=== PATIENT | male | born 1975 | race Caucasian/White ===

== ENCOUNTER → 2017-02-22 | Outpatient (CLI) | payer OTHER ==
[2016-05-07 13:45] VITALS: BP 95/56
[~2017-02-22] MED LIST: BACL20TA PO; CEFA2SYR IV; CEPH500T PO; CLIN300C8 PO; FENT1PAT21 TP; FENT1PAT91 TD; GABA-586 PO; GABA800T2 PO; NITR100C62 PO; OXYC20TA34 PO
--- NOTE | 2017-02-22 09:21 | RAD ---
COMPLETE ABDOMINAL ULTRASOUND Clinical History: Abdominal pain Comparison: None. Technique: Sonographic examination of the abdomen was performed and multiple grayscale and duplex Doppler static images were obtained. Findings: The majority of the liver is visualized and appears homogeneous. The liver measures 15.7 cm. Portal flow is hepatopetal. The common bile duct is normal in caliber, measuring 5 mm in diameter. Wall echo shadow sign consistent with multiple stones within the gallbladder. Mild gallbladder wall thickening measuring 0.4 cm. The pancreas is not well visualized due to overlying bowel gas but appears within normal limits. The right kidney is normal in morphology and echotexture and measures 11.7 x 5.4 x 4.9 cm. The left kidney is normal in morphology and echotexture and measures 12.5 x 6.5 x 5.6 cm. There is no hydronephrosis. The spleen is borderline enlarged, measuring 12.3 cm. Visualized portions of the abdominal aorta and IVC appear normal. IMPRESSION: 1. Wall echo shadow sign consistent with multiple stones in the gallbladder. Mild gallbladder wall thickening measuring 0.4 cm. No pericholecystic fluid. Findings can be seen with acute cholecystitis. HIDA scan could be obtained for confirmation. 2. Borderline splenomegaly.
== END | disposition home or self-care (01) ==
LOC: US 07:05
PROVIDERS: ATTEND Family Medicine
DX: R10.9 Unspecified abdominal pain (principal)
CPT/HCPCS: 76700

== ENCOUNTER → 2017-04-18 | Outpatient (CLI) | payer OTHER ==
[2016-05-07 13:45] VITALS: BP 95/56
[~2017-04-18] MED LIST changes: -CEFA2SYR IV; +CEFA2SYR4 IV; +CONTRAST GIVEN MC PRN; +IOHEXOL 240 MG/ML 50ML VIAL. PO ONE; +IOHEXOL 300 MG/ML 75 ML VIAL IV ONE
--- NOTE | 2017-04-18 13:17 | RAD ---
Indication weight loss. Diarrhea. Loss of appetite. Axial images through the abdomen and pelvis were obtained. Both IV and oral contrast were administered. Approximately 75 cc of Omnipaque 300 was administered intravenously. No prior CT imaging of the abdomen or pelvis is available. The lung bases appear clear. The liver and spleen appear unremarkable. Stones demonstrated in the gallbladder on an examination 02/22/2017 are not well represented on CT. The adrenal glands and kidneys appear unremarkable. The pancreas appears normal. An acute finding in the abdomen is not seen. In the pelvis a suprapubic catheter is noted in the bladder. A mass inflammatory process or acute finding is not seen. A moderate amount of stool is noted in the large bowel. IVC filter is noted. There are some venous collaterals noted in the pelvis. IMPRESSION: No acute finding seen in the abdomen or pelvis PQRS Compliance Statement: One or more of the following individualized dose reduction techniques were utilized for this examination: 1. Automated exposure control 2. Adjustment of the mA and/or kV according to patient size 3. Use of iterative reconstruction technique
== END | disposition home or self-care (01) ==
LOC: CT 11:02
PROVIDERS: ATTEND Surgery
DX: R19.00 Intra-abdominal and pelvic swelling, mass and lump, unspecified site (principal); R19.7 Diarrhea, unspecified; R63.0 Anorexia; R63.4 Abnormal weight loss
CPT/HCPCS: 74177

== ENCOUNTER → 2017-04-27 | Day surgery (SDC) | payer OTHER ==
[~2017-04-27] VITALS: Ht 177.8 cm; Wt 72.6 kg
[~2017-04-27] MED LIST changes: +ASCO100T4 PO; +BENZOCAINE/MENTHOL LOZENGE. PO PRN; +BUPIVACAINE-EPI 0.5%-1:200000 50 ML VIAL. ONE; -CONTRAST GIVEN MC PRN; +DEXAMETHASONE SOD PHOS 20 MG/5 ML VIAL. ONE; +ESMOLOL 100 MG/10 ML VIAL. IV ONE; +FURO20TA3 PO; +GLUCAGON,HUMAN RECOMBINANT 1 MG/ML VIAL. ONE; +GLYCOPYRROLATE 1 MG/5 ML VIAL. ONE; +HYDROmorphone 2 MG/ML VIAL IV PRN; -IOHEXOL 240 MG/ML 50ML VIAL. PO ONE; +IOHEXOL 300 MG/ML 50 ML VIAL. ONE; -IOHEXOL 300 MG/ML 75 ML VIAL IV ONE; +IV RINGERS,LACTATED 1000ML 1,000 ML IV SCH; +LIDOCAINE 1% PF 2 ML VIAL. ID PRN; +LIDOCAINE 2% PF Vial for OR 5 ML VIAL. ONE; +MIDAZOLAM HCL/PF 2 MG/2 ML VIAL. ONE; +MORPHINE SULFATE 2 MG/ML DISP.SYRIN. IV PRN; +MORPHINE SULFATE 4 MG/ML DISP.SYRIN. IV PRN; +MULT1TAB52 PO; +NEOSTIGMINE METHYLSULFATE 5 MG/5 ML SYRINGE. ONE; +ONDANSETRON PF 4 MG/2 ML VIAL. IV PRN; +ONDANSETRON PF 4 MG/2 ML VIAL. ONE; +PROCHLORPERAZINE 10 MG/2 ML VIAL. IV PRN; +PROPOFOL 20 ML IV ONE; +ROCURONIUM 100 MG/10 ML VIAL. ONE; +SEVOFLURANE 61 TO 120 MINUTES. IH ONE; +SURGICEL HEMOSTAT 4X8 EACH. ONE; +fentaNYL PF VIAL 100 MCG/2 ML VIAL IV PRN; +fentaNYL PF VIAL 100 MCG/2 ML VIAL ONE; +oxyCODONE IR 5 MG TABLET PO ONE
[2017-04-27 07:18] LABS: BASO % 1 % (0-3); EOS % 2 % (0-3); HEMATOCRIT 39.8 % (39.0-53.0); LYMPH # 2.5 x10^3/uL (1.0-4.8); LYMPH % 45 % (24-48); MEAN CORPUSCULAR HEMOGLOBIN 29 pg (25-35); MEAN CORPUSCULAR HGB CONC 33 g/dL (31-37); MEAN CORPUSCULAR VOLUME 88 fL (79-100); MONO % 9 % (0-9); NEUT % 43 % (31-73); PLATELET COUNT 186 x10^3/uL (140-400); RED BLOOD COUNT 4.51 x10^6/uL (4.30-5.70); WHITE BLOOD COUNT 5.5 x10^3/uL (4.0-11.0)
[2017-04-27 07:34] LABS: CALCIUM 9.1 mg/dL (8.5-10.1); CREATININE 0.8 mg/dL (0.7-1.3); GFR 107.1; POTASSIUM 3.9 mmol/L (3.5-5.1)
[2017-04-27 07:39] LABS: ALBUMIN 3.6 g/dL (3.4-5.0); TOTAL BILIRUBIN 0.3 mg/dL (0.2-1.0)
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
--- NOTE | 2017-04-27 09:51 | RAD ---
Operative cholangiogram History: Intraoperative cholangiogram Procedure: Fluoroscopic images were provided during the procedure. The cystic duct has been catheterized and contrast has been injected. Findings: There is mild dilated appearing common bile duct and prominent appearing intrahepatic bile ducts. Few small lucencies project in the distal aspect of the common bile duct could be air bubbles or choledocholithiasis. Contrast is identified in the duodenum. Impression: Few small lucencies project in the distal aspect of the common bile duct could be air bubbles or choledocholithiasis. Total fluoroscopic images 5. Total fluoroscopy time 0.29 minutes.
--- NOTE | 2017-04-27 10:06 | DISCH ---
DISCHARGE INSTRUCTIONS Condition on Discharge Condition on Discharge: Stable Activity After Discharge Activity Instructions for Disc: Activity as tolerated Diet after Discharge Diet after Discharge: Regular Follow-Up Follow up with: Gabriel next week DAGOBERTO MACDONALD MD Apr 27, 2017 10:06
--- NOTE | 2017-04-27 10:09 | PDOC ---
BRIEF OPERATIVE NOTE Date: Apr 27, 2017 Pre-Op Diagnosis symptomatic cholelithiasis Post-Op Diagnosis same, possible choledocholithiasis Procedure Performed l/s cholecystectomy with cholangiograms Surgeon Gabriel Patient Support Partner Mounika FLORES Anesthesia Type: General Blood Loss 25cc IV Fluid 700cc Specimens Obtained GB Findings supple GB, grams suggest air bubbles vs non obstructing stones Complications none OPerative Note Wk #[id number] DAGOBERTO MACDONALD MD Apr 27, 2017 10:09
[2017-04-27] MEDS: fentaNYL PF VIAL 100 MCG/2 ML VIAL IV PRN ×2 (10:19→10:40)
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
[2017-04-27 12:25] VITALS: BP 116/76
--- NOTE | 2017-04-28 13:36 | PATHOLOGY ---
PATHOLOGY REPORT * * * * * * * * FINAL DIAGNOSIS: Gallbladder, cholecystectomy: - Chronic cholecystitis. - Cholelithiasis. (SKM:levi; 04/28/2017) REPORT ELECTRONICALLY SIGNED BY: Cass Ahumada M.D. DATE/TIME: 04/28/2017 13:35 * * * * * * * * GROSS PATHOLOGY: Received in formalin labeled "Sondra Hair, gallbladder + its contents," is a 8.4 x 2.4 x 1.9 cm, intact gallbladder with bluepinkish, slightly wrinkled, and vascular serosal surfaces. Opening the gallbladder reveals dark chavez, velvety mucosa and an average wall thickness of 0.1 cm. Calculi are present, measuring 0.1-0.8 cm in maximum dimension, possessing a dark chavez color, and feeling friable to the touch. No masses are noted grossly. Hvac Sales Representative sections from the body and fundus are submitted along with the proximal margin in cassette A1. (TSD; 04/27/2017) INITIAL CPT CODE(S): A; 72808 Professional services performed by [facility] [place] [address] Technical services performed by [employer] at [address] [place] [address], [facility] [address], [place] [address]. SPECIMEN(S) RECEIVED: A.Gallbladder and its contents CLINICAL HISTORY: Gallstones PATIENT: SONDRA HAIR /AGE: 4 1975 (Age: 41) PATIENT #: [id number] ALT CASE #: SPECIMEN COLLECTION DATE: 04/27/2017 SPECIMEN RECEIVED DATE: 04/27/2017 [facility] - [address] [place] [address] - PHONE: [phone] * * * END OF REPORT * * *
== END | disposition home or self-care (01) ==
LOC: SURG 06:38
PROVIDERS: ATTEND Surgery
DX: K80.10 Calculus of gallbladder with chronic cholecystitis without obstruction (principal); F32.9 Major depressive disorder, single episode, unspecified; F17.200 Nicotine dependence, unspecified, uncomplicated; Z86.718 Personal history of other venous thrombosis and embolism; Z86.69 Personal history of other diseases of the nervous system and sense organs; Z98.890 Other specified postprocedural states; Z87.440 Personal history of urinary (tract) infections; Z87.39 Personal history of other diseases of the musculoskeletal system and connective tissue; Z72.89 Other problems related to lifestyle; Z72.0 Tobacco use
CPT/HCPCS: 36415; 47563; 74300; 80048; 82040; 82247; 85025; C1769; J0690; J1100; J2405; J2704; J2710; J3010; J3490; J7030; J7120; Q9967; 88304; J1610; J2250; J2001

== ENCOUNTER → 2018-07-20 | Outpatient (CLI) | payer OTHER ==
[2017-04-27 12:25] VITALS: BP 116/76
[~2018-07-20] MED LIST changes: -BENZOCAINE/MENTHOL LOZENGE. PO PRN; -BUPIVACAINE-EPI 0.5%-1:200000 50 ML VIAL. ONE; -DEXAMETHASONE SOD PHOS 20 MG/5 ML VIAL. ONE; -ESMOLOL 100 MG/10 ML VIAL. IV ONE; -GABA-586 PO; +GABA300C18 PO; -GABA800T2 PO; +GABA800T3 PO; -GLUCAGON,HUMAN RECOMBINANT 1 MG/ML VIAL. ONE; -GLYCOPYRROLATE 1 MG/5 ML VIAL. ONE; -HYDROmorphone 2 MG/ML VIAL IV PRN; -IOHEXOL 300 MG/ML 50 ML VIAL. ONE; -IV RINGERS,LACTATED 1000ML 1,000 ML IV SCH; -LIDOCAINE 1% PF 2 ML VIAL. ID PRN; -LIDOCAINE 2% PF Vial for OR 5 ML VIAL. ONE; -MIDAZOLAM HCL/PF 2 MG/2 ML VIAL. ONE; -MORPHINE SULFATE 2 MG/ML DISP.SYRIN. IV PRN; -MORPHINE SULFATE 4 MG/ML DISP.SYRIN. IV PRN; -NEOSTIGMINE METHYLSULFATE 5 MG/5 ML SYRINGE. ONE; -ONDANSETRON PF 4 MG/2 ML VIAL. IV PRN; -ONDANSETRON PF 4 MG/2 ML VIAL. ONE; -PROCHLORPERAZINE 10 MG/2 ML VIAL. IV PRN; -PROPOFOL 20 ML IV ONE; -ROCURONIUM 100 MG/10 ML VIAL. ONE; -SEVOFLURANE 61 TO 120 MINUTES. IH ONE; -SURGICEL HEMOSTAT 4X8 EACH. ONE; -fentaNYL PF VIAL 100 MCG/2 ML VIAL IV PRN; -fentaNYL PF VIAL 100 MCG/2 ML VIAL ONE; -oxyCODONE IR 5 MG TABLET PO ONE
--- NOTE | 2018-07-20 16:36 | RAD ---
AP view of the abdomen Clinical indications: Abdominal bloating and distention. FINDINGS: There is moderate fecal retention throughout the colon and rectosigmoid region. No small bowel dilatation is evident. IVC filter is present. Cholecystectomy clips are seen with right upper quadrant. IMPRESSION: Moderate fecal retention. Electronically signed by: Inocente Marinelli MD (07/20/2018 4:32 PM) [id number]
--- NOTE | 2018-07-20 17:25 | RAD ---
ABDOMEN COMPLETE History: Abdominal distention Comparison: February 22, 2017 Findings: Multiple sonographic images of the abdomen are submitted. There has been cholecystectomy. Common bile duct can be considered within normal limits given previous cholecystectomy at 0.8 cm. Right kidney measured 8.7 x 5.3 x 4.6 m. Left kidney measured 10.2 x 5.5 x 5.4 cm. Hepatic echotexture is within normal limits, no focal hepatic lesion demonstrated. There is no abnormality of the visualized pancreas. Abdominal aortic caliber is within normal limits. There is segmental visualization of the inferior vena cava. Spleen measured about 12.6 cm. No free fluid is demonstrated. Impression: 1. There has been cholecystectomy, no significant abnormality demonstrated. Electronically signed by: Moe Cano MD (07/20/2018 5:21 PM) [id number]
== END | disposition home or self-care (01) ==
LOC: US 09:56
PROVIDERS: ATTEND Family Medicine
DX: K59.00 Constipation, unspecified (principal); Z90.49 Acquired absence of other specified parts of digestive tract
CPT/HCPCS: 74018; 76700

== ENCOUNTER 2018-08-23 18:02 | Emergency (ER) | payer OTHER ==
[~2018-08-23] VITALS: Ht 180.3 cm; Wt 86.2 kg
--- NOTE | 2018-08-23 19:48 | PHYS DOC ---
Past Medical History Past Medical History: UTI, Vascular Disease Additional Past Medical Histor: QUAD,WOUND LEFT ELBOW,TREMORS,SUPRAPUBIC CATHETER Past Surgical History: No Surgical History Additional Past Surgical Histo: LEFT KNEE SURGERY,SKIN GRAFT,NECK SURGERY Alcohol Use: Rarely Drug Use: None Adult General Chief Complaint Chief Complaint: LOWER EXTREMITY SWELLING HPI HPI Patient is a 42 year old quadriplegic male who presents to the ER with complaints of bilateral lower extremity swelling for the last week. Pt states he has a prior hx of DVTs that he was prescribed Coumadin for approximately 5-7 years ago. He took the coumadin for 6 months and has not taken any since then. He denies any chest pain, palpitations, shortness of breath, cough, or fever. He denies any pain at this time. Pt states he does feel like it is more difficult to take a deep breath. He reports increased abdominal swelling for the last year. Review of Systems Review of Systems Constitutional: Denies fever or chills [] Eyes: Denies redness, or eye pain [] HENT: Denies nasal congestion or sore throat [] Respiratory: Denies cough or shortness of breath; see HPI[] Cardiovascular: No additional information not addressed in HPI [] GI: Denies abdominal pain, nausea, or vomiting; see HPI Musculoskeletal: See HPI Integument: Denies rash or skin lesions [] Neurologic: Denies headache, new focal weakness, or new sensory changes [] All other systems were reviewed and found to be within normal limits, except as documented in this note. Current Medications Current Medications Current Medications Medications (Trade) Dose Ordered Sig/Landry Start Time Stop Time Status Last Admin Dose Admin Sodium Chloride 1,000 ml @ 1,000 mls/hr 1X ONCE 08/23/18 22:00 08/23/18 22:59 DC 08/23/18 23:06 1,000 MLS/HR Allergies Allergies Allergies Coded Allergies Type Severity Reaction Last Updated Verified No Known Drug Allergies 04/27/17 No Physical Exam Physical Exam Constitutional: Well developed, well nourished, no acute distress, non-toxic appearance. [] HENT: Normocephalic, atraumatic, bilateral external ears normal, oropharynx moist, no oral exudates, nose normal. [] Eyes: PERRLA, conjunctiva normal, no discharge. [] Neck: Normal range of motion, no stridor. [] Cardiovascular:Heart rate bradycardic rhythm, no murmur [] Lungs & Thorax: Bilateral breath sounds clear to auscultation [] Abdomen: Bowel sounds normal, soft, no tenderness, no masses, no pulsatile masses. [] Skin: Warm, dry, no erythema, no rash. [] Extremities: No cyanosis, no clubbing, ROM intact, 2+edema of BLE cap refill <2 seconds Neurologic: Alert and oriented X 3, Current Patient Data Vital Signs Vital Signs Date Time Temp Pulse Resp B/P (MAP) Pulse Ox O2 Delivery O2 Flow Rate FiO2 08/23/18 18:37 97.6 52 16 99/55 (70) 96 Room Air 97.6 Lab Values Laboratory Tests Test 08/23/18 22:35 White Blood Count 6.1 x10^3/uL (4.0-11.0) Red Blood Count 4.51 x10^6/uL (4.30-5.70) Hemoglobin 13.0 g/dL (13.0-17.5) Hematocrit 39.4 % (39.0-53.0) Mean Corpuscular Volume 87 fL (79-100) Mean Corpuscular Hemoglobin 29 pg (25-35) Mean Corpuscular Hemoglobin Concent 33 g/dL (31-37) Red Cell Distribution Width 14.1 % (11.5-14.5) Platelet Count 173 x10^3/uL (140-400) Neutrophils (%) (Auto) 41 % (31-73) Lymphocytes (%) (Auto) 50 % (24-48) H Monocytes (%) (Auto) 8 % (0-9) Eosinophils (%) (Auto) 1 % (0-3) Basophils (%) (Auto) 0 % (0-3) Neutrophils # (Auto) 2.5 x10^3uL (1.8-7.7) Lymphocytes # (Auto) 3.1 x10^3/uL (1.0-4.8) Monocytes # (Auto) 0.5 x10^3/uL (0.0-1.1) Eosinophils # (Auto) 0.0 x10^3/uL (0.0-0.7) Basophils # (Auto) 0.0 x10^3/uL (0.0-0.2) Sodium Level 140 mmol/L (136-145) Potassium Level 4.1 mmol/L (3.5-5.1) Chloride Level 101 mmol/L (98-107) Carbon Dioxide Level 31 mmol/L (21-32) Anion Gap 8 (6-14) Blood Urea Nitrogen 12 mg/dL (8-26) Creatinine 0.7 mg/dL (0.7-1.3) Estimated GFR (Cockcroft-Gault) 124.3 BUN/Creatinine Ratio 17 (6-20) Glucose Level 97 mg/dL (70-99) Lactic Acid Level 0.7 mmol/L (0.4-2.0) Calcium Level 9.5 mg/dL (8.5-10.1) Total Bilirubin 0.8 mg/dL (0.2-1.0) Aspartate Amino Transferase (AST) 21 U/L (15-37) Alanine Aminotransferase (ALT) 28 U/L (16-63) Alkaline Phosphatase 63 U/L (46-116) UZ-Sml-J-Type Natriuretic Peptide 103 pg/mL (0-124) Total Protein 8.4 g/dL (6.4-8.2) H Albumin 3.5 g/dL (3.4-5.0) Albumin/Globulin Ratio 0.7 (1.0-1.7) L Laboratory Tests 08/23/18 22:35 Laboratory Tests 08/23/18 22:35 EKG EKG [] Radiology/Procedures Radiology/Procedures PROCEDURE: VENOUS LOWER EXT BILATERAL Examination: VENOUS LOWER EXT BILATERAL History: ble swelling x 1 wk L>R
pt is paraplegic

no evidence of dvt
rt distal fv duplication
rt prom ln in groin Comparison/Correlation: None Findings: Bilateral lower extremity venous duplex ultrasound exam was performed. Color Doppler, spectral Doppler and grayscale images were provided. Common femoral vein, superficial femoral vein, popliteal vein, peroneal veins, posterior tibial veins are unremarkable. Greater saphenous veins are unremarkable. 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 Benign-appearing right groin lymph nodes are present. Impression: No lower extremity DVT.[] Course & Med Decision Making Course & Med Decision Making Pertinent Labs and Imaging studies reviewed. (See chart for details) Dx: lower extremity edema. U/S of bilateral lower extremities negative for DVT During the visit pt's blood pressure declined to 72/50. Labs and CXR ordered. CBC, CMP, lactic acid were WNL, no acute process in CXR. Pt's blood pressure increased to 98/51 after 500 ml of NS. Pt agrees to follow up with PCP tomorrow , return to ER if symptoms worsen. [] Dragon Disclaimer Dragon Disclaimer This electronic medical record was generated, in whole or in part, using a voice recognition dictation system. Departure Departure Impression: Primary Impression: Lower extremity edema Disposition: 01 HOME, SELF-CARE Condition: STABLE Referrals: DAVID MONTAÑO (PCP) Patient Instructions: Peripheral Edema Additional Instructions: There was no evidence of a DVT on your ultrasound this evening. Your lab work was not concerning for an infection. Follow up with your primary care doctor tomorrow, return to the ER if symptoms worsen. HARRIS CAMARA APRN Aug 23, 2018 19:48
--- NOTE | 2018-08-23 21:12 | RAD ---
Examination: VENOUS LOWER EXT BILATERAL History: ble swelling x 1 wk L>R
pt is paraplegic

no evidence of dvt
rt distal fv duplication
rt prom ln in groin Comparison/Correlation: None Findings: Bilateral lower extremity venous duplex ultrasound exam was performed. Color Doppler, spectral Doppler and grayscale images were provided. Common femoral vein, superficial femoral vein, popliteal vein, peroneal veins, posterior tibial veins are unremarkable. Greater saphenous veins are unremarkable. 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 Benign-appearing right groin lymph nodes are present. Impression: No lower extremity DVT. Electronically signed by: Kehinde Mathis MD (08/23/2018 9:07 PM) [facility]
[2018-08-23] MEDS ORDERED: IV NORMAL SALINE 1000ML BAG 1,000 ML IV ONE (22:00)
[2018-08-23 22:54] LABS: BASO % 0 % (0-3); EOS % 1 % (0-3); HEMATOCRIT 39.4 % (39.0-53.0); LYMPH # 3.1 x10^3/uL (1.0-4.8); LYMPH % 50 % (24-48); MEAN CORPUSCULAR HEMOGLOBIN 29 pg (25-35); MEAN CORPUSCULAR HGB CONC 33 g/dL (31-37); MEAN CORPUSCULAR VOLUME 87 fL (79-100); MONO # 0.5 x10^3/uL (0.0-1.1); MONO % 8 % (0-9); NEUT # 2.5 x10^3uL (1.8-7.7); NEUT % 41 % (31-73); PLATELET COUNT 173 x10^3/uL (140-400); RED BLOOD COUNT 4.51 x10^6/uL (4.30-5.70); RED CELL DISTRIBUTION WIDTH 14.1 % (11.5-14.5); WHITE BLOOD COUNT 6.1 x10^3/uL (4.0-11.0)
[2018-08-23 23:06] LABS: CALCIUM 9.5 mg/dL (8.5-10.1); CREATININE 0.7 mg/dL (0.7-1.3); GFR 124.3; POTASSIUM 4.1 mmol/L (3.5-5.1)
[2018-08-23 23:12] LABS: ALBUMIN 3.5 g/dL (3.4-5.0); ALBUMIN/GLOBULIN RATIO 0.7 (1.0-1.7); TOTAL BILIRUBIN 0.8 mg/dL (0.2-1.0); TOTAL PROTEIN 8.4 g/dL (6.4-8.2)
[2018-08-24] VITALS: BP 87/52
--- NOTE | 2018-08-24 00:16 | RAD ---
Examination: PORTABLE CHEST 1V History: Hypotension, bilateral leg edema Comparison/Correlation: None Findings: Portable upright frontal view chest was obtained. Right costophrenic angle is not included limiting evaluation. Rods and screws involving the low cervical and upper thoracic spine. Heart size and pulmonary vasculature are normal. No infiltrate or pleural effusion suggested. Right costophrenic angle was not fully included limiting assessment however. Impression: No infiltrate. Electronically signed by: Kehinde Mathis MD (08/24/2018 12:12 AM) [facility]
--- NOTE | 2018-08-24 06:24 | EKG ---
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
== END 2018-08-24 00:45 | disposition home or self-care (01) ==
LOC: ER 18:02
DX: R60.0 Localized edema (principal); Z86.718 Personal history of other venous thrombosis and embolism; Z87.440 Personal history of urinary (tract) infections
CPT/HCPCS: 36415; 71045; 80053; 83605; 83880; 85025; 87040; 93005; 93970; 99284; J7030

== ENCOUNTER → 2018-09-13 | Outpatient (CLI) | payer OTHER ==
[2018-08-24] VITALS: BP 87/52
[~2018-09-13] MED LIST changes: -GABA800T3 PO; +GABA800T5 PO; +PREG150C PO
[2018-09-13 16:50] LABS: ALBUMIN 3.8 g/dL (3.4-5.0); ALBUMIN/GLOBULIN RATIO 0.9 (1.0-1.7); CALCIUM 9.5 mg/dL (8.5-10.1); CREATININE 0.8 mg/dL (0.7-1.3); GFR 106.5; TOTAL BILIRUBIN 0.6 mg/dL (0.2-1.0); TOTAL PROTEIN 8.1 g/dL (6.4-8.2)
== END | disposition home or self-care (01) ==
LOC: SPEC 15:46
PROVIDERS: ATTEND Family Medicine
DX: R60.0 Localized edema (principal)
CPT/HCPCS: 36415; 80053

== ENCOUNTER → 2018-11-14 | Outpatient (CLI) | payer OTHER ==
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
== END | disposition home or self-care (01) ==
LOC: PNCL 12:37
PROVIDERS: ATTEND Anesthesiology
DX: G82.50 Quadriplegia, unspecified (principal); M54.2 Cervicalgia; M25.511 Pain in right shoulder; M25.512 Pain in left shoulder; G89.4 Chronic pain syndrome; Z90.49 Acquired absence of other specified parts of digestive tract; Z87.891 Personal history of nicotine dependence
CPT/HCPCS: G0463

== ENCOUNTER → 2019-01-23 | Outpatient (CLI) | payer OTHER ==
[~2019-01-23] MED LIST changes: +LIDOCAINE 1% PF 2 ML VIAL. ONE
--- NOTE | 2019-01-23 22:21 | PAIN ---
DATE OF SERVICE: 01/23/2019 PROGRESS NOTE FOR PAIN CLINIC DIAGNOSES: 1. Cervical radiculopathy with cervical post-laminectomy syndrome. 2. Chronic pain syndrome. HISTORY OF PRESENT ILLNESS: The patient is a 43-year-old male who returns for followup status post initial evaluation and scheduled for a trial for spinal cord stimulator placement. The patient returns today wishing to proceed. We had discussed the procedure in detail with the patient. He would like to get this attempt as he still has significant pain in the base of the neck and shoulders, right equal to left, burning pain, tingling and burning as well as aching and dull in the base of the neck itself. The patient reports pain is a 3 on a scale of 10 on average, 6-7 at its worst with the pain medicines and Duragesic patches. The patient again is paraplegic and he is in a motorized wheelchair with some partial use of the upper extremities only. PHYSICAL EXAMINATION: VITAL SIGNS: Today, the patient's blood pressure is 103/53, pulse 61, respirations 18, temperature 98.4 degrees Fahrenheit, height is 5 feet 11 inches, weight is 190 pounds stated. HEENT: Head is normocephalic, atraumatic. Extraocular muscles are intact and symmetrical. Oral cavity: Mucous membranes moist and pink. NECK: Shows anterior throat supple. Swallow reflex symmetrical. CHEST: Shows normal with inspection. Breath sounds are clear bilaterally. HEART: Shows S1, S2 clear. ABDOMEN: Obese but soft, nontender, nondistended. BACK: Shows spine grossly in the midline, with some flattening of the cervical lordotic curvature with well-healed surgical scarring. Also, some flattening of the thoracic and lumbar lordotic curvatures. EXTREMITIES: The patient's extremities show no motor involuntary movement of the lower extremities. Upper extremities show deep tendon reflexes 2+ in the biceps, triceps tendons. Motor exam is about 2-3 on a scale of 5 with silk trimmer strength, bicep, and tricep flexion and symmetrical. Options were discussed with the patient. The patient's old chart was reviewed as his current medication regimen updated. Current review of systems updated today as well. We will proceed with a spinal cord stimulator temporary lead placement. Risks were discussed including but not limited to bleeding, infection, possibility of epidural hematoma and subsequent neurological compromise, dural puncture, headaches, spinal cord and/or nerve damage and poor results regarding pain control. The patient understands and wished to proceed. The patient was taken to the procedure room after consent and sterile prep and drape with C-arm fluoroscopic guidance initial attempts at the T12-L1 interspace was made with easy access to the epidural space of preservative-free normal saline under fluoroscopic guidance both AP and lateral views, but without ability to advance the spinal cord stimulator lead more than approximately 3 levels in the vertebral column. At this time, local anesthetic was used to enter the space at the T1-T2 level just left paramedian with fluoroscopic guidance once again. A 14-gauge Hustead once again where the space was entered without difficulty with good preservative-free normal saline loss of resistance technique. Again, the spinal cord stimulator wire was advanced, but only to the level of the C5-C6 intervertebral space with inability to advance the wire further than this suspected from previous scar tissue. The patient had extensive surgery and fusion of the cervical spine. At this time, procedure was abandoned. Sterile bandages were placed and the patient was placed back into the wheelchair with some assistance. The patient tolerated procedure well, had no immediate complications. We will have him return at this time in approximately 2 weeks to discuss potential referral for intrathecal pump evaluation and potential placement. The patient would like to discuss this with his spouse. We will have him return once he has done so if he is interested in pursuing this other option. MARCK BONILLA MD DR: YOSI/caitlin JOB#: [id number] / [id number]
== END ==
LOC: PNCL 12:59
PROVIDERS: ATTEND Anesthesiology
DX: M54.12 Radiculopathy, cervical region (principal); M96.1 Postlaminectomy syndrome, not elsewhere classified
CPT/HCPCS: 63650; C1897

== ENCOUNTER → 2019-09-06 | Outpatient (CLI) | payer BC, OTHER ==
[~2019-09-06] MED LIST changes: -LIDOCAINE 1% PF 2 ML VIAL. ONE
--- NOTE | 2019-09-06 17:15 | RAD ---
PROCEDURE: CERVICAL SPINE 2-3V, THORACIC SPINE 3V STUDY DATE: 09/06/2019 CLINICAL INDICATION / HISTORY: Chronic pain and unspecified quadriplegia. TECHNIQUE: 3 VIEWS: AP, lateral and odontoid COMPARISON: No relevant comparisons currently available. FINDINGS: Alignment is straightened. There is no listhesis. Vertebral body heights are maintained. The disc spaces are diffusely fused in the cervical spine. Heart and pedicle screw construct fusion hardware is present from C3 through C6, skipping C7 and continuing down to T2. There has also been a posterior decompression at these levels. The atlantoaxial joint is well maintained. No fracture or subluxation is identified. Prevertebral and paraspinous soft tissues are unremarkable. IMPRESSION: Postop changes from cervical spine posterior decompression and fusion spanning C3 through the upper thoracic spine as described. No acute abnormalities noted. PROCEDURE: CERVICAL SPINE 2-3V, THORACIC SPINE 3V STUDY DATE: 09/06/2019 CLINICAL INDICATION / HISTORY: Chronic pain, unspecified quadriplegia. TECHNIQUE: Thoracic spine was examined in the AP lateral and swimmers projections. COMPARISON: None available FINDINGS: The osseous structures are normally mineralized. There is a normal thoracic kyphosis with normal alignment of the thoracic vertebral bodies. With the exception of mild endplate irregularity at T9 superiorly and inferiorly, there is preservation of the vertebral body heights as well as the intervertebral disk space heights throughout the thoracic spine. No evidence of acute fracture or subluxation is identified. IMPRESSION: Mild degenerative changes in the lower thoracic spine most notably at T9. Otherwise unremarkable T-spine x-ray series. No fracture, malalignment or aggressive osseous lesions noted. Electronically signed by: Olivia Rollins MD (09/06/2019 5:12 PM) [facility]
--- NOTE | 2019-09-06 17:25 | RAD ---
THORACIC SPINE WO CONTRAST, CERVICAL SPINE WO CONTRAST History: Quadriplegia. Chronic pain. Technique: Multiplanar, multi sequential noncontrast MR imaging was performed of the cervical spine and thoracic. Comparison: None Findings: Cervical spine MRI: Posterior stabilization C3-T2 skin thickening and C7. Hardware produces susceptibility artifact degrading evaluation of the canal on multiple sequences. Straightening of normal cervical lordosis. Otherwise, normal vertebral body alignment. Normal vertebral body height. No acute fracture. Diffuse thinning of the cervical cord with T2/FLAIR signal abnormality. Large syrinx within the cervical cord with diffuse volume loss extending from the C5 through the T1 level. C2-C3: No canal narrowing. Uncovertebral and facet arthropathy. Moderate bilateral neural foraminal narrowing. C3-C4: No canal narrowing. Uncovertebral and facet arthropathy. Mild left neuroforaminal narrowing. C4-C5: No canal narrowing. Uncovertebral hypertrophy. Mild right neuroforaminal narrowing. No left neuroforaminal narrowing. C5-C6: No canal or neuroforaminal narrowing. C6-C7: No canal or neuroforaminal narrowing. C7-T1: No canal or neuroforaminal narrowing. Thoracic spine MRI: Normal vertebral body alignment. Normal vertebral body height. No fracture. Smaller caliber thoracic spinal cord compatible with myelomalacia. Mild multilevel degenerative disc changes. Small posterior disc protrusion on the right T6-T7. No canal narrowing. Minimal cord flattening. T3-T3 central disc protrusion abutting the thoracic spinal cord. No canal narrowing. Small T8-T9 disc protrusion. Lower thoracic facet arthropathy. Mild T10-T11 and T11-T12 neuroforaminal narrowing. No high-grade neural foraminal narrowing. T10-T11 mild canal narrowing. Impression: 1. Diffuse cervical and thoracic cord volume loss with myelomalacia and large probable syrinx at the C5-T1 level. 2. Postoperative changes posterior stabilization C3-T2. 3. Mild multilevel cervical and thoracic spondylosis, as described. Electronically signed by: Gregory Farah DO (09/06/2019 5:23 PM) [id number]
== END | disposition home or self-care (01) ==
LOC: MRI 14:34
PROVIDERS: ATTEND Preventive Medicine Occupational Medicine
DX: M51.24 Other intervertebral disc displacement, thoracic region (principal); M47.814 Spondylosis without myelopathy or radiculopathy, thoracic region; M48.02 Spinal stenosis, cervical region; M40.294 Other kyphosis, thoracic region; M12.88 Other specific arthropathies, not elsewhere classified, other specified site; G89.4 Chronic pain syndrome
CPT/HCPCS: 72040; 72072; 72141; 72146